=== PATIENT | male | born 1990 | race Asian ===

== ENCOUNTER 2018-05-16 14:03 | Emergency (ER) | payer OTHER ==
[2018-05-16 14:19] VITALS: BP 130/77
[2018-05-16] MEDS ORDERED: DICYCLOMINE 10 MG CAPSULE PO STA (14:55)
[2018-05-16] MEDS ORDERED: ONDANSETRON ODT 4 MG TABLET TL STA (14:55)
[2018-05-16] MEDS ORDERED: LOPERAMIDE 2 MG CAPSULE PO STA (14:55)
--- NOTE | 2018-05-16 14:58 | ED Physician Documentation ---
PD HPI ABD PAIN - Stated complaint Stated Complaint: N/V/D BODY ACHES - Chief complaint Chief Complaint: Abd Pain - History obtained from History obtained from: Patient - History of Present Illness Timing - onset: Other (He became sick early this morning with vomiting and diarrhea and stomach cramps and body aches. No focal abdominal pain or fevers. No recent travel.) Review of Systems Constitutional: reports: Fatigue. denies: Fever, Chills Nose: denies: Rhinorrhea / runny nose, Congestion Cardiac: denies: Chest pain / pressure, Palpitations Respiratory: denies: Dyspnea PD PAST MEDICAL HISTORY - Present Medications Home Medications: Ambulatory Orders Medication Instructions Recorded Confirmed Dicyclomine [Bentyl] 10 mg PO QID PRN #10 capsule 05/16/18 Loperamide [Imodium] 2 mg PO QID PRN #10 capsule 05/16/18 Ondansetron Odt [Zofran] 4 mg TL Q6H PRN #10 tablet 05/16/18 - Allergies Allergies/Adverse Reactions: Allergies Allergy/AdvReac Type Severity Reaction Status Date / Time No Known Drug Allergies Allergy Verified 05/16/18 14:18 PD ED PE NORMAL - Vitals Vital signs reviewed: Yes - General General: Alert and oriented X 3, No acute distress - HEENT HEENT: Pharynx benign - Abdomen Abdomen: Normal bowel sounds, Soft, Non tender - Neuro Neuro: Alert and oriented X 3, Normal speech Results - Vitals Vitals: Vital Signs - 24 hr 05/16/18 14:16 Temperature 36.9 C Heart Rate 80 Respiratory 18 Rate Blood Pressure 130/77 O2 Saturation 98 Oxygen O2 Source Room air PD MEDICAL DECISION MAKING - ED course ED course: This is a 27-year-old gentleman with symptoms consistent with viral gastroenteritis. He has a benign exam and no physical findings. No evidence of dehydration at this juncture. Departure - Departure Disposition: 01 Home, Self Care Clinical Impression: Gastroenteritis Condition: Good Record reviewed to determine appropriate education?: Yes Instructions: ED Gastroenteritis Viral Prescriptions: Dicyclomine [Bentyl] 10 mg PO QID PRN #10 capsule PRN Reason: Cramp Loperamide [Imodium] 2 mg PO QID PRN #10 capsule PRN Reason: Diarrhea Ondansetron Odt [Zofran] 4 mg TL Q6H PRN #10 tablet PRN Reason: Nausea / Vomiting Comments: Return in 24 hours if not better, anytime if worse or if new symptoms develop. Forms: Activity restrictions
== END 2018-05-16 15:06 | disposition home or self-care (01) ==
LOC: ED 14:03
DX: K52.9 Noninfective gastroenteritis and colitis, unspecified (principal)
CPT/HCPCS: 99283; A9270; Q0162

== ENCOUNTER 2023-07-23 15:41 | Outpatient (CLI) | payer OTHER ==
--- NOTE | 2023-07-23 16:18 | Sleep Patient Instructions ---
Sleep Center Visit Summary - Patient Visit Information Reason for Visit: Initial consult for evaluation of sleep disordered breathing and other sleep issues. - Patient Instructions Instructions Attached: Sleep Study Additional Instructions: You will be completing a sleep study, either an in-lab polysomnography (PSG) or home sleep study (HST). You will follow-up in the sleep care office after the sleep study is completed to hear the results and talk about therapy, if needed. You will be called by our office staff to schedule this appointment, but you may contact us with any questions. - Clinic Information Contact: [facility] [address] [place] [address] [email or web address] T: [phone]
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
[2023-07-23 16:31] VITALS: BP 136/85; O2SAT 97
== END 2023-07-23 15:42 | disposition home or self-care (01) ==
LOC: SC 15:41
PROVIDERS: ATTEND Nurse Practitioner Family
DX: R06.83 Snoring (principal); G47.8 Other sleep disorders; R06.81 Apnea, not elsewhere classified; G47.10 Hypersomnia, unspecified; R53.83 Other fatigue; E66.9 Obesity, unspecified; Z68.37 Body mass index [BMI] 37.0-37.9, adult; Z87.891 Personal history of nicotine dependence
CPT/HCPCS: 99203; 99212

== ENCOUNTER 2023-08-07 18:29 | Outpatient (CLI) | payer OTHER ==
--- NOTE | 2023-08-08 20:51 | XRAY Report ---
PROCEDURE: Chest 2V INDICATIONS: WHEEZING TECHNIQUE: 2 views of the chest were acquired. COMPARISON: None. FINDINGS: Surgical changes and devices: None. Lungs and pleura: No pleural effusions or pneumothorax. Mild bilateral perihilar bronchial wall thic kening. Lungs are otherwise clear. Mediastinum: Mediastinal contours appear normal. Heart size is normal. Bones and chest wall: No suspicious bony lesions. Overlying soft tissues appear unremarkable. IMPRESSION: Mild bilateral perihilar bronchial wall thickening suggestive of reactive airways disease and/or zuhair l pneumonia. No focal pulmonary consolidation. Reviewed by: Valerie Hodges MD on 08/08/2023 8:50 PM PST Approved by: Valerie Hodges MD on 08/08/2023 8:50 PM PST Station ID: [id number]
== END 2023-08-07 18:30 | disposition home or self-care (01) ==
LOC: DI 18:29
PROVIDERS: ATTEND Family Medicine
DX: R91.8 Other nonspecific abnormal finding of lung field (principal)

== ENCOUNTER 2023-08-09 16:16 | Emergency (ER) | payer OTHER ==
--- NOTE | 2023-08-09 17:47 | ED Physician Documentation ---
PD HPI URI - Stated complaint Stated Complaint: SOA,CONGESTION - Chief complaint Chief Complaint: Heent - History obtained from History obtained from: Patient - Additional information Additional information: 32-year-old gentleman who is otherwise healthy has been sick for about 8 days with productive cough, especially bad at night with nosebleeds and sinus pain. The sinus pain resolved. He went to urgent care 2 days ago where a COVID/flu/RSV swab was done and reportedly negative and also had a chest x-ray showing a viral pattern. He was put on a Z-Jeffrey, codeine and an albuterol inhaler but needs more help. No fevers. PD PAST MEDICAL HISTORY - Past Surgical History Past Surgical History: No - Present Medications Home Medications: Ambulatory Orders Medication Instructions Recorded Confirmed Albuterol Sulfate [Proair 1 - 2 puffs INH PRN PRN 08/09/23 08/09/23 Digihaler] Azithromycin 250 mg PO DAILY 08/09/23 08/09/23 Codeine Phosphate/Guaifenesin 5 ml PO Q4HR PRN 08/09/23 08/09/23 [Codeine-Guaifen 10-100 mg/5 ml] predniSONE [Deltasone] 60 mg PO DAILY 5 Days #15 tablet 08/09/23 - Allergies Allergies/Adverse Reactions: Allergies Allergy/AdvReac Type Severity Reaction Status Date / Time No Known Drug Allergies Allergy Verified 08/09/23 16:29 - Social History Does the pt smoke?: No Smoking Status: Never smoker Does the pt drink ETOH?: No Does the pt have substance abuse?: No - Immunizations Immunizations are current?: Yes PD ED PE NORMAL - Vitals Vital signs reviewed: Yes - General General: Alert and oriented X 3, No acute distress - Cardiac Cardiac: RRR, No murmur - Respiratory Respiratory: No respiratory distress, Other (Rhonchorous breath sounds throughout without focal findings. Nonlabored breathing.) - Neuro Neuro: Alert and oriented X 3, Normal speech Results - Vitals Vitals: Vital Signs - 24 hr 08/09/23 16:23 Temperature 37.7 C Heart Rate 85 Respiratory 16 Rate Blood Pressure 127/85 H O2 Saturation 98 Oxygen O2 Source Room air PD Medical Decision Making - ED course ED course: 32-year-old gentleman persistent symptoms of bronchitis. He is already on antibiotics albuterol and codeine. I will add prednisone. Departure - Departure Disposition: Home, Self Care Clinical Impression: Bronchitis Condition: Good Record reviewed to determine appropriate education?: Yes Instructions: ED Bronchitis Asthmatic Prescriptions: predniSONE [Deltasone] 60 mg PO DAILY 5 Days #15 tablet Comments: Your examination is consistent with bronchitis. Your chest x-ray from the other day showed a viral type pattern. You can continue the antibiotics but there is a good chance they are necessary. To that I am adding some steroids which should help with the inflammation in your lungs. Return if worse. 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 Forms: Activity restrictions
[2023-08-09] MEDS: ALBUTEROL NEB 2.5 MG/3 ML INH STA (18:07)
[2023-08-09] MEDS: predniSONE 20 MG TABLET PO STA (18:10)
[2023-08-09 18:27] VITALS: BP 122/76; O2SAT 99
== END 2023-08-09 18:21 | disposition home or self-care (01) ==
LOC: ED 16:16
DX: J40 Bronchitis, not specified as acute or chronic (principal)
CPT/HCPCS: 94640; 99283; J7512

== ENCOUNTER 2023-08-25 19:48 | Outpatient (CLI) | payer OTHER | END 2023-08-25 19:49 | disposition home or self-care (01) | LOC: SC 19:48 | PROVIDERS: ATTEND Nurse Practitioner Family | DX: G47.33 Obstructive sleep apnea (adult) (pediatric) (principal) | CPT/HCPCS: 95810 ==

== ENCOUNTER 2023-09-16 13:30 | Outpatient (CLI) | payer OTHER ==
--- NOTE | 2023-09-16 13:50 | Sleep Patient Instructions ---
Sleep Center Visit Summary - Patient Visit Information Reason for Visit: Sleep study follow-up - Patient Instructions Instructions Attached: CPAP Additional Instructions: You are being started on CPAP therapy with pressure setting at 4-15 cmH2O. You w ill need to call the sleep care office to set up your follow up once you have your CPAP machine to check compliance and response to therapy at that time. You may call the office with any concerns about pressure feeling too low or too much for adjustment, if needed. You should contact DME supplier for any questions or concerns about mask or equipment. Please call office to schedule a follow up appointment in the sleep care office one month after obtaining new device. - Clinic Information Contact: [facility] [address] [place] [address] [email or web address] T: [phone]
--- NOTE | 2023-09-16 13:52 | SLEEP CARE CONSULTATION ---
Information from patient questionnaire entered by Genny Moore. I have reviewed and concur with the information entered by Genny Moore. This document represents the service I personally performed and the decisions made by me, Deena Ramírez ARNP. History of Present Illness Service Date and Time: 09/16/2023 1330 Initial [place] Sleepiness Scale score: 22 (07/23/23) Current [place] Sleepiness Scale score: 22 (09/16/23) Additional HPI information: LUDMILA CAMARGO returns for follow up and results of the recently performed polysomnography. The sleep study showed moderate obstructive sleep apnea with an average AHI of 16.3 and theodore oxygen saturation of 78%. His cardiac monitoring was NSR with frequent PVCs, occasionally in bigeminy. I explained the pathophysiology behind obstructive sleep apnea. We then spent quite a bit of time discussing different treatment options. For mild obstructive sleep apnea, surgery and oral appliance are alternatives to nasal CPAP therapy but in moderate or severe cases, nasal CPAP is the most effective and reliable treatment. Because apnea is primarily in supine position, then positional management therapy could be effective. Methods discussed such as positioning with pillows, using a T-shirt with tennis balls in the back, and shown commercial products that have a pillow format on back to prevent supine sleep. I reviewed the impact of weight changes on sleep apnea and strongly recommended losing weight. After some discussion, the patient opted to go with the nasal CPAP therapy. Nasal autoCPAP set at 4-15 cmH20 will be ordered with rationale explained. A manual titration study will be ordered if unable to find optimal pressure with office adjustments. I explained how CPAP machine works and what to expect when using the machine. Using CPAP every night in order to get used to it was emphasized. Patient advised to put CPAP mask on before getting into bed so as not to fall asleep without CPAP. To assist acclimation to CPAP use, it could also be used for a short time during day while reading or watching TV. The patient was instructed to call the CPAP supplier to discuss any mechanical problem that may occur. If the mask given is uncomfortable or is difficult to keep on through the night even with adjustment, contact the CPAP supplier as many will replace with another mask style if notified before 30 days. If snoring or perceives is not getting enough air or too much air from the machine, notify this office. Patient counseled not drink alcohol less than 4 hours before bedtime as it can increase snoring and apnea. Patient was cautioned about risks of drowsy driving until sleepiness symptoms resolve. Sleep Study - Results Type of Sleep Study: Polysomnography (COMPLETED 08/25/23) Prior sleep studies: No Polysomnography/Home Sleep Study results: IMPRESSION: The quality of the study is good. The patient had normal sleep efficiency. The sleep architecture was abnormal for sleep fragmentation and reduced amount of time spent in REM and slow wave sleep (N3). Respiratory monitoring showed moderate obstructive sleep apnea-hypopnea (AHI = 16.3) associated with frequent arousals, oxyhemoglobin desaturation and moderate hypoxia (theodore oxygen saturation of 78%). The respiratory events occurred almost exclusively during supine sleep (supine AHI = 33.2; non- supine = 0.25). Snore was moderate in intensity. There was no significant periodic leg movement of sleep. Cardiac rhythm was sinus rhythm with frequent premature ventricular contractions, occasionally in bigeminy. No abnormal behavior (parasomnia) observed during the night. Allergies and Home Medications Known drug allergies: No Drug allergies reviewed: Yes Home medication list reviewed: Yes (no changes) Allergy and home medication list: Allergies No Known Drug Allergies Allergy (Verified 09/14/23 10:49) Review of Systems Review of systems same as previous: Yes (NO CHANGE) Physical Exam Vital signs obtained and entered by: GENNY Bowman MA Blood Pressure: 135/90 (RIGHT ARM) Cuff size: regular Heart Rate: 92 O2 Saturation: 98 Height: 5 ft 7 in Weight: 244 lb Body Mass Index: 38.2 BMI Classification: Obese Impression and Plan 1. Obstructive Sleep Apnea-Hypopnea Syndrome, moderate, with lowest oxygen saturation of 78%. Obviously this is the cause of the patients symptoms of unrefreshed sleep, and excessive daytime sleepiness. As mentioned above, the patient will be started on nasal autoCPAP therapy with pressure set at 4-15 cmH2 O. A manual titration study will be completed if unable to find optimal treatment pressure with office adjustments. Compliance guidelines also reviewed. A copy of compliance guidelines will be given for reference at check out. Because the apnea is more severe supine, I instructed to avoid sleeping supine using pillow positioning until able to start CPAP use. 2. Hypoxemia, moderate, with a theodore oxygen saturation of 78% and 4.9 minutes spent under 90%. The baseline oxygen saturation was normal with an average oxygen saturation of 94%. 3. Arrhythmia, unspecified. Cardiac monitoring showed frequent PVCs with occasional bigeminy noted during the night of the sleep study. 4. Obesity, unspecified. Currently patients BMI is 38.2. Obesity increases the risk of apnea, CPAP pressure requirements and overall health risks especially cardiovascular and diabetes. Thus patient is advised to lose weight. * Nasal auto CPAP therapy, pressure at 4-15 cm H2O. * Attempt to lose weight. * Avoid alcohol consumption near bedtime. * Avoid supine sleep until using CPAP. * The patient is again cautioned about driving until sleepiness completely resolves. * Return one month after CPAP obtained. I will assess response to therapy and compliance at that time. Counseling Topics: Sleeping position, Weight loss health impact Prescriptions: Auto CPAP Visit Type: In Office Time Spent with Patient (minutes): 21 Provider Statement: I spent 100% of the Face to Face Visit with the patient with greater than 50% spent counseling the patient and coordination of care.
[2023-09-16 13:59] VITALS: BP 135/90; O2SAT 98
== END 2023-09-16 13:31 | disposition home or self-care (01) ==
LOC: SC 13:30
PROVIDERS: ATTEND Nurse Practitioner Family
DX: G47.33 Obstructive sleep apnea (adult) (pediatric) (principal); R09.02 Hypoxemia; I49.9 Cardiac arrhythmia, unspecified; E66.9 Obesity, unspecified; Z68.38 Body mass index [BMI] 38.0-38.9, adult
CPT/HCPCS: 99212; 99213